=== PATIENT | male | born 1985 | race Asian ===

== ENCOUNTER → 2019-02-12 | Outpatient (CLI) | payer OTHER ==
--- NOTE | 2019-02-12 16:33 | Diagnostic Imaging Report ---
EXAMINATION: CHEST 2 VIEWS INDICATION: Sinus congestion and cough ^[id number] ^[id number] COMPARISON: None FINDINGS: PA and lateral views TUBES and LINES: None. LUNGS: Lungs are well inflated. Mild bronchial wall thickening. No confluent infiltrates or interstitial edema PLEURA: No pleural effusion or pneumothorax. HEART AND MEDIASTINUM: The cardiomediastinal silhouette is unremarkable.. BONES AND SOFT TISSUES: No focal osseous lesions. Soft tissues are unremarkable. UPPER ABDOMEN: No free air under the diaphragm. IMPRESSION: Mild bronchial wall thickening suggestive of bronchitis. No infiltrates. Signed by: Dr. Jian Castillo MD on 02/12/2019 4:30 PM
--- NOTE | 2019-02-12 16:34 | Diagnostic Imaging Report ---
Sinus series CPT code: 99782 History: Cough, congestion Comparison: None. Findings: Four views obtained. The frontal, ethmoid, maxillary, and sphenoid sinuses are well aerated without mucoperiosteal thickening. The bony amato of the sinuses are intact. There is mild leftward nasal septal radiation. IMPRESSION: No paranasal sinus disease. Signed by: Dr. Jian Castillo MD on 02/12/2019 4:31 PM
== END ==
LOC: RAD 15:26
PROVIDERS: ATTEND Internal Medicine
DX: R05 Cough (principal); R09.89 Other specified symptoms and signs involving the circulatory and respiratory systems
CPT/HCPCS: 70220; 71046